=== PATIENT | male | born 1995 ===

== ENCOUNTER 2017-10-31 14:39 | Emergency (ER) | payer BC ==
[2017-10-31 14:45] VITALS: BP 130/93
--- NOTE | 2017-10-31 14:51 | ER Report ---
History and Physical Time Seen By MD: 14:51 Hx. of Stated Complaint: PATIENT HAS BEEN HAVING BLOATING, CRAMPING AND FREQUENT BOUTS OF CONSTIPATION FOR THE LAST YEAR AND A HALF. HPI/ROS 22-year-old male had surgery on his knee one year ago was on narcotics at that time had issues with constipation states he is bowels have not been well regulated sounds he has have a 80 appointment with gastroenterology in 2 weeks states that he has tried probiotics lacks Ex-Lax and multiple othb-lrf-ecllmus laxatives without results Allergies: Coded Allergies: No Known Drug Allergies (Unverified , 10/31/17) Home Meds Active Scripts Bifidobacterium Infantis (ALIGN) 4 Mg Capsule, 4 MG PO QDAY for 30 Days, CAPSULE Prov:DAYO VERGARA 10/31/17 Sennosides/Docusate Sodium (SENNA-S TABLET) 1 Each Tablet, 2 EACH PO HS for 30 Days Prov:DAYO VERGARA 10/31/17 Past Medical/Surgical History knee surg Reviewed Nurses Notes: Yes Hx Substance Use Disorder: No Hx Alcohol Use: No Constitutional Vital Sign - Last 24 Hours 10/31/17 14:45 Temp 97.8 Pulse 90 Resp 20 B/P (MAP) 130/93 Pulse Ox 98 O2 Delivery Room Air Intake and Output 10/31/17 10/31/17 11/01/17 15:00 23:00 07:00 Intake Total 1000 ml Balance 1000 ml Physical Exam CHIEF COMPLAINT: Constipation HISTORY OF PRESENT ILLNESS: Patient is 22-year-old male states that he's had constipation on and off for the last year after taking opioids for his knee surgery thumb has an appointment with gastroenterology in 2 weeks has been taking [id number] preps with no they'll REVIEW OF SYSTEMS: Respiratory: No cough, no dyspnea. Cardiovascular: No chest pain, no palpitations. Gastrointestinal: No vomiting, abdominal paincrampy abdominal pain Musculoskeletal: No back pain. Medical Decision Making Data Points Result Diagram: 10/31/17 1500 10/31/17 1500 Laboratory Hematology Test 10/31/17 15:00 Red Blood Count 5.29 M/uL (4.00-5.60) Mean Corpuscular Volume 90.9 fL (80.0-96.0) Mean Corpuscular Hemoglobin 32.5 pg (26.0-33.0) Mean Corpuscular Hemoglobin Concent 35.8 g/dL (32.0-36.0) Red Cell Distribution Width 14.1 % (11.5-14.5) Mean Platelet Volume 8.8 fL (7.2-11.1) Neutrophils (%) (Auto) 53.5 % (39.4-72.5) Lymphocytes (%) (Auto) 32.0 % (17.6-49.6) Monocytes (%) (Auto) 9.8 % (4.1-12.4) Eosinophils (%) (Auto) 3.7 % (0.4-6.7) Basophils (%) (Auto) 1.0 % (0.3-1.4) Nucleated RBC Relative Count (auto) 0.0 /100WBC Neutrophils # (Auto) 3.5 K/uL (2.0-7.4) Lymphocytes # (Auto) 2.1 K/uL (1.3-3.6) Monocytes # (Auto) 0.6 K/uL (0.3-1.0) Eosinophils # (Auto) 0.2 K/uL (0.0-0.5) Basophils # (Auto) 0.1 K/uL (0.0-0.1) Nucleated RBC Absolute Count (auto) 0.00 K/uL Urine Color Straw Urine Clarity Clear Urine pH 7.0 pH (4.8-9.5) Urine Specific [place] 1.006 Urine Protein Negative mg/dL (NEGATIVE) Urine Glucose (UA) Negative mg/dL (NEGATIVE) Urine Ketones Negative mg/dL (NEGATIVE) Urine Blood Negative (NEGATIVE) Urine Nitrite Negative (NEGATIVE) Urine Bilirubin Negative (NEGATIVE) Urine Urobilinogen Negative mg/dL (0.2-1.9) Urine Leukocyte Esterase Negative (NEGATIVE) Urine RBC None /HPF (0-2/HPF) Urine WBC None /HPF (0-5/HPF) Urine Squamous Epithelial Cells None /LPF (</=FEW) Urine Bacteria Few /HPF (NONE-FEW) Urine Mucus None /HPF (NONE-FEW) Sodium Level 142 mmol/L (137-145) Potassium Level 3.6 mmol/L (3.5-5.0) Chloride Level 102 mmol/L (98-107) Carbon Dioxide Level 25 mmol/L (22-30) Blood Urea Nitrogen 12 mg/dl (9-21) Creatinine 1.20 mg/dl (0.66-1.25) Glomerular Filtration Rate Calc > 60.0 Random Glucose 95 mg/dl (75-110) Calcium Level 9.6 mg/dl (8.4-10.2) Total Bilirubin 0.9 mg/dl (0.2-1.3) Aspartate Amino Transf (AST/SGOT) 25 U/L (0-35) Alanine Aminotransferase (ALT/SGPT) 27 U/L (0-56) Alkaline Phosphatase 44 U/L (0-126) Total Protein 7.6 gm/dl (6.3-8.2) Albumin 4.5 g/dl (3.5-5.0) Amylase Level 64 U/L (0-110) Lipase 120 U/L (23-300) Chemistry Test 10/31/17 15:00 White Blood Count 6.5 k/uL (4.5-11.0) Red Blood Count 5.29 M/uL (4.00-5.60) Hemoglobin 17.2 g/dL (14.0-18.0) Hematocrit 48.1 % (42.0-52.0) Mean Corpuscular Volume 90.9 fL (80.0-96.0) Mean Corpuscular Hemoglobin 32.5 pg (26.0-33.0) Mean Corpuscular Hemoglobin Concent 35.8 g/dL (32.0-36.0) Red Cell Distribution Width 14.1 % (11.5-14.5) Platelet Count 249 K/uL (150-450) Mean Platelet Volume 8.8 fL (7.2-11.1) Neutrophils (%) (Auto) 53.5 % (39.4-72.5) Lymphocytes (%) (Auto) 32.0 % (17.6-49.6) Monocytes (%) (Auto) 9.8 % (4.1-12.4) Eosinophils (%) (Auto) 3.7 % (0.4-6.7) Basophils (%) (Auto) 1.0 % (0.3-1.4) Nucleated RBC Relative Count (auto) 0.0 /100WBC Neutrophils # (Auto) 3.5 K/uL (2.0-7.4) Lymphocytes # (Auto) 2.1 K/uL (1.3-3.6) Monocytes # (Auto) 0.6 K/uL (0.3-1.0) Eosinophils # (Auto) 0.2 K/uL (0.0-0.5) Basophils # (Auto) 0.1 K/uL (0.0-0.1) Nucleated RBC Absolute Count (auto) 0.00 K/uL Urine Color Straw Urine Clarity Clear Urine pH 7.0 pH (4.8-9.5) Urine Specific [place] 1.006 Urine Protein Negative mg/dL (NEGATIVE) Urine Glucose (UA) Negative mg/dL (NEGATIVE) Urine Ketones Negative mg/dL (NEGATIVE) Urine Blood Negative (NEGATIVE) Urine Nitrite Negative (NEGATIVE) Urine Bilirubin Negative (NEGATIVE) Urine Urobilinogen Negative mg/dL (0.2-1.9) Urine Leukocyte Esterase Negative (NEGATIVE) Urine RBC None /HPF (0-2/HPF) Urine WBC None /HPF (0-5/HPF) Urine Squamous Epithelial Cells None /LPF (</=FEW) Urine Bacteria Few /HPF (NONE-FEW) Urine Mucus None /HPF (NONE-FEW) Glomerular Filtration Rate Calc > 60.0 Calcium Level 9.6 mg/dl (8.4-10.2) Total Bilirubin 0.9 mg/dl (0.2-1.3) Aspartate Amino Transf (AST/SGOT) 25 U/L (0-35) Alanine Aminotransferase (ALT/SGPT) 27 U/L (0-56) Alkaline Phosphatase 44 U/L (0-126) Total Protein 7.6 gm/dl (6.3-8.2) Albumin 4.5 g/dl (3.5-5.0) Amylase Level 64 U/L (0-110) Lipase 120 U/L (23-300) Urinalysis Test 10/31/17 15:00 Urine Color Straw Urine Clarity Clear Urine pH 7.0 pH (4.8-9.5) Urine Specific [place] 1.006 Urine Protein Negative mg/dL (NEGATIVE) Urine Glucose (UA) Negative mg/dL (NEGATIVE) Urine Ketones Negative mg/dL (NEGATIVE) Urine Blood Negative (NEGATIVE) Urine Nitrite Negative (NEGATIVE) Urine Bilirubin Negative (NEGATIVE) Urine Urobilinogen Negative mg/dL (0.2-1.9) Urine Leukocyte Esterase Negative (NEGATIVE) Urine RBC None /HPF (0-2/HPF) Urine WBC None /HPF (0-5/HPF) Urine Squamous Epithelial Cells None /LPF (</=FEW) Urine Bacteria Few /HPF (NONE-FEW) Urine Mucus None /HPF (NONE-FEW) ED Course/Re-evaluation Clinical Indication for ER IV: Hydration ED Course All lab work and x-rays negative today's workup they get liter of normal saline in the emergency room is having no abdominal pain does have follow-up with proof carrier in 2 weeks we'll send him home with overlying daily and senna S at bedtime follow-up with his gastroenterology Decision to Disposition Date: Oct 31, 2017 Decision to Disposition Time: 14:10 Depart Departure Latest Vital Signs Vital Signs Date Time Temp Pulse Resp B/P (MAP) Pulse Ox O2 Delivery O2 Flow Rate FiO2 10/31/17 14:45 97.8 90 20 130/93 98 Room Air Impression: Primary Impression: Constipation Condition: Improved Disposition: HOME OR SELF-CARE New Scripts Bifidobacterium Infantis (ALIGN) 4 Mg Capsule 4 MG PO QDAY for 30 Days, CAPSULE Prov: DAYO VERGARA 10/31/17 Sennosides/Docusate Sodium (SENNA-S TABLET) 1 Each Tablet 2 EACH PO HS for 30 Days Prov: DAYO VERGARA 10/31/17 Patient Instructions: Constipation (ED) Additional Instructions: Follow-up with the proof carrier in 2 weeks as scheduled DAYO VERGARA Oct 31, 2017 14:51
[2017-10-31] MEDS ORDERED: NS(*) 0.9% 1000 ML BAG 1,000 ML IV ONE (14:53)
[2017-10-31 15:12] LABS: PLATELET COUNT, AUTOMATED 249 K/uL (150-450)
[2017-10-31] MEDS ORDERED: SENN1TAB10 PO (15:27)
[2017-10-31] MEDS ORDERED: BIFI4CAP2 PO (15:28)
--- NOTE | 2017-10-31 15:51 | RADIOLOGY IMAGING REPORT ---
[place] [facility] [place] NAME: Shine Stephens : 1995 MR: [id number] V: [id number] EXAM DATE: ORDERING PHYSICIAN: DAYO VERGARA TECHNOLOGIST: Location: [facility] Patient: Shine Stephens : 1995 Visit/Account:[id number] Date of Sevice: 10/31/2017 ABDOMEN AP AND ERECT/DECUB INDICATION: Constipation. COMPARISON: None available FINDINGS: Upright and supine view of the abdomen. Some stool seen in colon. Bowel gas pattern is no nobstructed and nondilated. Abdominal soft tissues are grossly normal without suspicious lucencies or abnormal callus cases. Vascular phleboliths seen in the right pelvis. Lung bases are clear. Bony str uctures are normal for age. IMPRESSION: Unremarkable exam. Report Dictated By: Henrique Cotto at 10/31/2017 3:44 PM Report E-Signed By: Henrique Cotto at 10/31/2017 3:46 PM WSN:[id number]
== END 2017-10-31 16:06 | disposition home or self-care (01) ==
LOC: ER 14:54
DX: K59.00 Constipation, unspecified (principal)
CPT/HCPCS: 74019; 81001; 82150; 83690; 85025; 96360; 99284; J7030; 82040; 82247; 82310; 82374; 82435; 82565; 82947; 84075; 84132; 84155; 84295; 84450; 84460; 84520